=== PATIENT | female | born 1950 | race Hispanic/Latino ===

== ENCOUNTER 2019-06-26 09:18 | Outpatient (CLI) | payer MEDICARE, OTHER ==
--- NOTE | 2019-06-26 15:38 | BD ---
DEXA BONE DENSITOMETRY: (Dual energy X-ray Absorptiometry) 06/26/19 HISTORY: 69-year-old female for age-related postmenopausal, osteoporosis screening examination. Ht. 62 inches. Wt. 152 lb. Age of menopause: 49 COMPARISON: None available. FINDINGS: The bone mineral density (BMD) is given in grams per square centimeter (g/cm2): LUMBAR SPINE: BMD(g/cm2) T-score Z-score L1: 0.846 -1.3 0.4 L2: 0.911 -1.1 0.8 L3: 0.994 -0.8 1.2 L4: 1.167 1.0 2.0 Total: 0.991 -0.5 1.4 HIP: Femoral neck: 0.697 -1.4 0.1 Total: 0.954 0.1 1.2 IMPRESSION: 1) The mean bone mineral density of the lumbar spine is normal. Fracture risk is not increased. 2) The bone mineral density of the femoral neck is osteopenic. Fracture risk is increased. JN Herbert POS: [facility]
== END 2019-06-26 09:19 | disposition home or self-care (01) ==
LOC: BICMAMMO 09:18
PROVIDERS: ATTEND Family Medicine
DX: M81.8 Other osteoporosis without current pathological fracture (principal); M85.89 Other specified disorders of bone density and structure, multiple sites
CPT/HCPCS: 77080